=== PATIENT | male | born 1995 | race Caucasian/White ===

== ENCOUNTER → 2025-05-06 12:39 | Outpatient (REF) | payer OTHER, SELFPAY | LOC: EMG 12:39 | PROVIDERS: ATTENDING PHYSICIAN Physician Assistant | DX: M62.89 Other specified disorders of muscle (principal); R20.2 Paresthesia of skin; R20.0 Anesthesia of skin | CPT/HCPCS: 95886; 95909 ==

== ENCOUNTER → 2025-06-18 14:20 | Outpatient (REF) | payer OTHER, SELFPAY | LOC: RAD 14:20 | PROVIDERS: ATTENDING PHYSICIAN Physician Assistant; FAMILY PHYSICIAN Family Medicine | DX: M79.644 Pain in right finger(s) (principal) | CPT/HCPCS: 73130 ==

== ENCOUNTER → 2025-06-20 06:37 | Outpatient (REF) | payer OTHER, SELFPAY | LOC: MRI 3T 06:37 | PROVIDERS: ATTENDING PHYSICIAN Physician Assistant; FAMILY PHYSICIAN Family Medicine | DX: M25.511 Pain in right shoulder (principal) | CPT/HCPCS: 71550; 72141 ==